=== PATIENT | male | born 1940 | race Caucasian/White ===

== ENCOUNTER → 2017-06-08 | Outpatient (CLI) | payer OTHER | LOC: FIMAGING 16:00 | DX: M41.86 Other forms of scoliosis, lumbar region (principal); M48.061 Spinal stenosis, lumbar region without neurogenic claudication; M46.96 Unspecified inflammatory spondylopathy, lumbar region; M48.07 Spinal stenosis, lumbosacral region; M46.97 Unspecified inflammatory spondylopathy, lumbosacral region ==

== ENCOUNTER → 2017-08-17 | Outpatient (CLI) | payer OTHER | LOC: BHFA 14:00 | PROVIDERS: ATTEND Internal Medicine Cardiovascular Disease | DX: R06.02 Shortness of breath (principal); I25.10 Atherosclerotic heart disease of native coronary artery without angina pectoris | CPT/HCPCS: 78452; 93017; A9500 ==

== ENCOUNTER → 2017-08-24 | Outpatient (CLI) | payer OTHER | LOC: BHFA 14:00 | PROVIDERS: ATTEND Internal Medicine Cardiovascular Disease | DX: I25.10 Atherosclerotic heart disease of native coronary artery without angina pectoris (principal) ==

== ENCOUNTER 2018-04-28 03:50 | Emergency (ER) | payer OTHER ==
--- NOTE | 2018-04-28 03:53 | EDPHY ---
H & P Time Seen by Provider: 04/28/18 03:53 HPI/ROS: HPI CHIEF COMPLAINT: Needs Sutherland catheter. Unable to urinate. HISTORY OF PRESENT ILLNESS: 77-year-old male, history of BPH, has been having intermittently trouble urinating with urinary retention, sees Dr. Joshi, presents emergency room stating that he is unable to urinate in void. Bladder feels full. Denies any chest pain or shortness of breath denies fever, denies back pain. Suprapubic fullness is present. States he has had multiple catheters in the past. Past Medical History: Significant past medical history for coronary disease, prostate CA, restless leg syndrome Past Surgical History: CABG Social History: Lives locally. Denies drugs alcohol tobacco. Family History: Noncontributory. ROS REVIEW OF SYSTEMS: 10 Systems were reviewed and negative with the exception of the elements mentioned in the history of present illness. Exam Constitutional triage nursing summary reviewed, vital signs reviewed, awake/ alert. Eyes normal conjunctivae and sclera, EOMI, PERRLA. HENT normal inspection, atraumatic, moist mucus membranes, no epistaxis, neck supple/ no meningismus, no raccoon eyes. Respiratory clear to auscultation bilaterally, normal breath sounds, no respiratory distress, no wheezing. Cardiovascular rate normal, regular rhythm, no murmur, no edema, distal pulses normal. Gastrointestinal soft, non-tender, no rebound, no guarding, normal bowel sounds, no distension, no pulsatile mass. Genitourinary no CVA tenderness. Musculoskeletal no midline vertebral tenderness, full range of motion, no calf swelling, no tenderness of extremities, no meningismus, good pulses, neurovascularly intact. Skin pink, warm, & dry, no rash, skin atraumatic. Neurologic awake, alert and oriented x 3, AAOx3, moves all 4 extremities equally, motor intact, sensory intact, CN II-XII intact, normal cerebellar, normal vision, normal speech. Psychiatric normal mood/affect. Heme/Lymph/Immune no lymphadenopathy. Differential Diagnosis: Includes but is not limited to in a particular order urinary retention, urinary outflow obstruction, BPH, need for catheter. Medical Decision Making: Plan for this patient check UA, Sutherland catheter. Bladder scan performed here in emergency room shows over 200 mL. Re-evaluation: Sutherland catheter was placed. Urinalysis reviewed shows leukocyte esterase positive 3+. Urine culture sent. IV Rocephin has been ordered. Sutherland catheter is placed 300 cc of urine was removed. Urinalysis reviewed. IM Rocephin given. Keflex for home. Return precautions discussed. Source: Patient - Personal History Tetanus Vaccine Date: 9-10 years ago - Medical/Surgical History Hx Asthma: No Hx Chronic Respiratory Disease: No Hx Diabetes: No Hx Cardiac Disease: Yes Hx Renal Disease: No Hx Cirrhosis: No Hx Alcoholism: No Hx HIV/AIDS: No Hx Splenectomy or Spleen Trauma: No Other PMH: PMH: bypass x2, [place], prostate cancer, - Social History Smoking Status: Never smoked Constitutional: Initial Vital Signs Temperature (C) 36.7 C 04/28/18 03:52 Heart Rate 90 04/28/18 03:52 Respiratory Rate 16 04/28/18 03:52 Blood Pressure 160/87 H 04/28/18 03:52 O2 Sat (%) 95 04/28/18 03:52 O2 Delivery Mode Room Air Allergies/Adverse Reactions: Sulfa (Sulfonamide Antibiotics) Allergy (Verified 04/28/18 03:57) Home Medications: Medication Instructions Recorded Aspirin [Aspirin 81mg] 01/31/11 Nebivolol HCl [Bystolic] 01/31/11 Sildenafil Citrate [Viagra] 01/31/11 Alfuzosin HCl [Uroxatral] 05/27/11 Clonazepam 02/04/16 Gabapentin 02/04/16 Testosterone Cypionate 02/04/16 morphINE IR 15 mg (*) 02/04/16 Cephalexin [Keflex] 500 mg PO Q6H #28 cap 04/28/18 Medical Decision Making - Data Points Laboratory Results: 04/28/18 04:20 Urine Color YELLOW Urine Appearance MODERATELY TURBID Urine pH 5.0 (5.0-7.5) Ur Specific [place] 1.017 (1.002-1.030) Urine Protein NEGATIVE (NEGATIVE) Urine Ketones NEGATIVE (NEGATIVE) Urine Blood 1+ H (NEGATIVE) Urine Nitrate NEGATIVE (NEGATIVE) Urine Bilirubin NEGATIVE (NEGATIVE) Urine Urobilinogen NEGATIVE EU EU (0.2-1.0) Ur Leukocyte Esterase 3+ H (NEGATIVE) Urine RBC Pending Urine WBC Pending Ur Epithelial Cells Pending Urine Glucose NEGATIVE (NEGATIVE) Medications Given: Discontinued Medications Lidocaine (Uroject Lidocaine 2% Jelly) 20 ml UR EDNOW ONE Stop: 04/28/18 04:09 Last Admin: 04/28/18 04:09 Dose: 20 ml Departure - Departure Disposition: Home, Routine, Self-Care Clinical Impression: Urinary retention, UTI (urinary tract infection) Condition: Good Instructions: Urinary Retention in Men (ED), Enlarged Prostate (BPH) (ED), Sutherland Catheter Placement and Care (ED), Urinary Tract Infection in Men (ED) Referrals: SARAY SERRA [Primary Care Provider] - As per Instructions Chris Joshi MD [Medical Doctor] - As per Instructions Prescriptions: Cephalexin [Keflex] 500 mg PO Q6H #28 cap
[2018-04-28] MEDS ORDERED: LIDOCAINE 2% JELLY 20 ML (UROJECT) ONE (04:06)
[2018-04-28] MEDS ORDERED: LIDOCAINE 2% JELLY 20 ML (UROJECT) UR ONE (04:08)
[2018-04-28] MEDS ORDERED: cefTRIAXone 1 GM VIAL IM ONE (04:50)
[2018-04-28 05:16] VITALS: BP 120/79
== END 2018-04-28 05:43 | disposition home or self-care (01) ==
PROC: 0T9B70Z Drainage of Bladder with Drainage Device, Via Natural or Artificial Opening (ICD-10-PCS; principal; 2018-04-28)
DX: N39.0 Urinary tract infection, site not specified (principal); N40.1 Benign prostatic hyperplasia with lower urinary tract symptoms; R33.9 Retention of urine, unspecified; Z85.46 Personal history of malignant neoplasm of prostate
CPT/HCPCS: 51702; 96372; 99283; J0696